=== PATIENT | female | born 1985 ===

== ENCOUNTER → 2022-07-03 13:42 | Outpatient (ROUT) | payer OTHER, SELFPAY ==
[2022-07-03 16:49] LABS: COVID-19 CEPHEID PCR (VTM/NP) Negative (Negative)
== END ==
PROVIDERS: Visit Provider Otolaryngology
DX: Z20.822 Contact with and (suspected) exposure to COVID-19 (principal); J98.8 Other specified respiratory disorders; J35.1 Hypertrophy of tonsils; J03.91 Acute recurrent tonsillitis, unspecified; J34.2 Deviated nasal septum
CPT/HCPCS: U0003; U0005

== ENCOUNTER 2022-07-05 09:57 | Day surgery (SDC) | payer OTHER, SELFPAY ==
[2022-07-02 14:35] VITALS: BMI 47.5
[2022-07-05] VITALS (9 sets, daily range): BP systolic 118–140; BP diastolic 69–80; PULSE 64–84; RESP 16–24; TEMP 36.4–36.7; O2SAT 95–98; BMI 47.5
[2022-07-05 10:43] LABS: COVID19 -Nasal RAPID Negative (Negative)
--- NOTE | 2022-07-05 11:02 | PM.PREOP ---
Pre-operative Note Interval Note History & Physical reviewed/Exam performed by Physician: Yes Changes to H&P: No
--- NOTE | 2022-07-05 11:02 | PM.HP.1 ---
History of Present Illness History of Present Illness Date Patient Seen: 07/05/22 Time Patient Seen: 11:02 Chief complaint: SDC Narrative: 36-year-old female last seen in clinic 03/20/2022 for the diagnoses of upper airway obstruction, tonsillar hypertrophy, recurrent tonsillitis and septal deviation presents without new complaints. No recent cough, cold, or fever. Wishes to proceed with tonsillectomy and possible adenoidectomy as outpatient. Occasional possible witnessed apneas but not consistent. Patient History Medical History Airway obstruction Enlarged tonsils Headache Nasal septal deviation Tonsillitis Surgical History History of Family & Social History Social History: household members spouse,children Tobacco & Substance use: Smoking Status Never smoker alcohol intake former Substance Use Type does not use Meds Home Medications and Allergies Home Medications Medication Instructions Recorded Confirmed Type No Known Home Medications 07/02/22 07/02/22 History Allergies Allergy/AdvReac Type Severity Reaction Status Date / Time No Known Drug Allergies Allergy Verified 07/05/22 10:22 Review of Systems Review of Systems Narrative: Negative except as listed in HPI Exam Vital Signs (past 8 hours): - 07/05/22 10:23 Temperature 98.0 F Pulse Rate 69 Respiratory Rate 16 Blood Pressure 129/78 Pulse Oximetry 98 Oxygen Delivery Method Room Air Oxygen Delivery Method Room Air Narrative Exam Narrative: Well-developed overweight female in no acute distress. Heart regular rate and rhythm without murmur, lungs clear to auscultation bilaterally Objective Labs Labs: Laboratory Results - last 24 hr 07/05/22 10:18 SARS-CoV-2 (PCR) Negative Assessment & Plan Assessment & Plan narrative: Assessment: Upper airway obstruction secondary to tonsillar hypertrophy, recurrent tonsillitis Plan: Following discussion of the material risks benefits complications and alternatives, she elected to proceed with tonsillectomy and possible adenoidectomy as outpatient Time Spent With Patient Critical Care time: I spent a total of [] minutes of critical care time on this patient's care today; this time is exclusive of procedural time.
--- NOTE | 2022-07-05 11:04 | PM.OP.1 ---
Operative Date/Time/Diagnoses Date of procedure: 07/05/22 Time of procedure: 12:53 Pre-op diagnosis: Upper airway obstruction secondary to tonsillar hypertrophy, recurrent tonsillitis Post-op diagnosis: same (with mild adenoid hypertrophy) Procedure & Clinicians Procedure: Tonsillectomy and adenoidectomy Same procedure as scheduled: Yes Indications: 36-year-old female with above diagnoses incompletely managed with medical therapy presents for the above procedure. Following discussion of the material risks benefits complications and alternatives, she elected to proceed. Surgeon: Adelso Cavazos Click Yes if Unassisted: Yes Anesthesia Type: General and Local Operative Notes Findings: 3 to 4+ tonsils, 1-2+ adenoids, intact palate, single uvula, small oral cavity with relative macroglossia, difficult exposure Estimated Blood Loss (mL): 10 Procedure in detail: Following identification and confirmation of consent the patient was brought to the operating room suite and placed in the supine position. General endotracheal anesthesia was administered. A head wrap, shoulder roll, and mouth gag were placed and a red rubber catheter was inserted through the nostril and out the mouth to retract the soft palate. Suction electrocautery on a setting of 40 was used to ablate the adenoids, without injury to the eustachian tube orifices or choanae. Due to difficult exposure, the gag was placed to allow visualization of 1 tonsil at a time for dissection. The left tonsil was retracted medially and suction electrocautery on a setting of 30 was used to dissect the tonsil in a subcapsular plane. Hemostasis with additional suction electrocautery was obtained. This process was repeated on the right side with identical findings. The tonsillar fossa were superficially infiltrated bilaterally with a 1 1 mixture of 1% lidocaine and 0.5% Marcaine 1 to [id number] epinephrine. Mouth gag and rubber catheter were removed and the patient was extubated in the operating room and taken to the recovery room in stable condition without known complication. Complications: none Post-operative Condition: stable Disposition: same day surgery Plan for aftercare: Push fluids, alternate Tylenol and Advil every 3 hours for baseline pain control, oxycodone for breakthrough pain. Soft diet 2 full weeks, no heavy lifting or straining 2 weeks.
[2022-07-05] MEDS: LACTATED RINGERS 1,000 ML 84 ML IV (11:12)
--- NOTE | 2022-07-05 12:27 | SUR.OPER ---
Supine on padded OR bed, head on pillow, arms secured on padded arm boards at <90 degrees abduction, legs uncrossed, safety belt at thigh, tape over blanket over lower legs.
[2022-07-05] MEDS: LIDOCAINE 1% (PF) 5 ML INJ (12:30)
[2022-07-05] MEDS: BUPIVACAINE 0.5% W/ EPI (PF) 30 ML VIAL INJ (12:31)
[2022-07-05] MEDS: BENZOCAINE/MENTHOL 1 LOZ PKT 1 EACH PO (13:23)
[2022-07-05] MEDS: OXYCODONE IR 5 MG TABLET PO (13:23)
--- NOTE | 2022-07-05 13:48 | SUR.PHASEII ---
Call light within reach. Juice provided, patient swallowing without difficulty.
== END 2022-07-05 14:33 | disposition home or self-care (01) ==
PROVIDERS: Referring Provider Otolaryngology; Visit Provider Otolaryngology
PROC: (CPT 42821; principal; 2022-07-05 11:45)
DX: J03.90 Acute tonsillitis, unspecified (principal); J35.2 Hypertrophy of adenoids; Z20.822 Contact with and (suspected) exposure to COVID-19
CPT/HCPCS: 42821; 81025; 87635; C9803; J0330; J1100; J2250; J2405; J2704; J3010

== ENCOUNTER → 2022-09-20 12:59 | Outpatient (CLI) | payer OTHER, SELFPAY ==
[2022-09-20 20:14] LABS: Urine Chlamydia NOT DETECTED; Urine N gonorrhoeae NOT DETECTED
== END ==
PROVIDERS: Visit Provider Obstetrics & Gynecology
DX: Z34.81 Encounter for supervision of other normal pregnancy, first trimester (principal); Z11.3 Encounter for screening for infections with a predominantly sexual mode of transmission; Z3A.13 13 weeks gestation of pregnancy
CPT/HCPCS: 87491; 87591

== ENCOUNTER → 2022-09-20 13:18 | Outpatient (CLI) | payer OTHER, SELFPAY ==
[2022-09-20 14:11] LABS: Appearance Urine UA SL CLOUDY; Bilirubin Urine UA NEGATIVE (NEGATIVE); Color Urine UA YELLOW; Glucose Urine UA NEGATIVE (Negative); Ketones Urine UA TRACE (NEGATIVE); Leukocyte Esterase Urine UA TRACE (NEGATIVE); Nitrite Urine UA NEGATIVE (Negative); Occult Blood Urine UA TRACE-LYSED (Negative); Protein Urine UA NEGATIVE (Negative); Urobilinogen Urine UA 0.2 E.U./dL (0.2)
[2022-09-20 14:25] LABS: Amorphous Sediment Urine 1+; Bacteria Urine Many (>30); RBC Urine 1-5/HPF (0-5/HPF); Renal Epithelial Cells Urine 1-5/HPF (0-1/HPF); Squamous Epithelial Cell Urine 10-30 /HPF (0-5/HPF); WBC Urine 5-10/HPF (0-5/HPF)
[2022-09-20 14:40] LABS: Add Manual Diff / Slide Review NO; Basophils Absolute Auto 0 /uL (0-100); Basophils Percent Auto 0.1 % (0-2); Eosinophils Absolute Auto 100 /uL (0-450); Eosinophils Percent Auto 1.2 % (2-4); Hematocrit 33.1 % (36-46); Hemoglobin 11.4 g/dL (12.0-16.0); Lymphocytes Absolute Auto 2000 /uL (1100-4500); Lymphocytes Percent Auto 18.2 % (25-40); Mean Corpuscular HGB Conc 34.4 % (30-36); Mean Corpuscular Hemoglobin 27.1 PG (26-34); Mean Corpuscular Volume 78.8 fL (80-100); Monocytes Absolute Auto 400 /uL (0-900); Monocytes Percent Auto 3.4 % (3-14); Neutrophils Absolute Auto 8300 /uL (1500-7000); Neutrophils Percent Auto 77.1 % (50-75); Platelet Count 309 X10^3/uL (150-400); Red Cell Distribution Width 14.3 % (11.6-14.8); White Blood Cell Count 10.8 X10^3/uL (4.5-11.0)
[2022-09-20 17:27] LABS: HIV 1 & 2 Ab/Ag 4th Gen Combo NEGATIVE (NEGATIVE); Hep C Virus Ab w/Reflex Quant NEGATIVE s/c (NEGATIVE); Hepatitis B Surface Antigen NEGATIVE s/c (NEGATIVE); Rubella Antibody IgG 27.6 IU/mL (>15)
[2022-09-21 07:03] LABS: RPR Screen Non Reactive (Non Reactive)
[2022-09-21 07:08] LABS: Varicella IgG Antibody <135 index (Immune >165)
== END ==
PROVIDERS: Referring Provider Obstetrics & Gynecology; Visit Provider Obstetrics & Gynecology
DX: O09.521 Supervision of elderly multigravida, first trimester (principal); Z11.3 Encounter for screening for infections with a predominantly sexual mode of transmission; Z3A.13 13 weeks gestation of pregnancy
CPT/HCPCS: 36415; 80055; 81003; 81015; 86787; 86803; 86850; 86900; 86901; 87086; 87389; 87491; 87591

== ENCOUNTER → 2022-10-12 15:48 | Outpatient (CLI) | payer OTHER, SELFPAY ==
[2022-10-16 15:07] LABS: AFP Value 23.6 ng/mL (.); Insulin Dep Diabetes No (.); OSBR Risk 1IN 10000 (.); Results Report (.); Test Results *Screen Negative* (.)
== END ==
PROVIDERS: Referring Provider Obstetrics & Gynecology; Visit Provider Obstetrics & Gynecology
DX: Z34.82 Encounter for supervision of other normal pregnancy, second trimester (principal); Z3A.17 17 weeks gestation of pregnancy
CPT/HCPCS: 36415; 82105

== ENCOUNTER 2022-10-13 12:22 | Emergency (ER) | payer OTHER, SELFPAY ==
[2022-10-13 12:35] VITALS: BP 110/56; PULSE 78; RESP 18; TEMP 36.6; O2SAT 98; BMI 43.4
--- NOTE | 2022-10-13 12:51 | ED.FALL ---
HPI - Fall <Selin Roy PA-C - Last Filed: 10/13/22 15:51> General Chief Complaint: Fall Stated Complaint: 17 weeks fell in shower hips/tailbone olga Time Seen by Provider: 10/13/22 12:51 Source: patient Mode of arrival: Ambulatory History of Present Illness HPI Narrative: 36-year-old female with a history of 17 weeks , obesity presents with concern for pain and discomfort after falling in the shower this morning. Patient states that she had a mechanical fall and her left foot slipped forward out from under her she realized she was going down and put her right foot out behind her and did kind of a splits she ended up with her buttocks and hips hitting the back wall of the shower as she slid down. She did not hit her head or neck and did not lose consciousness. She states she ended up in an odd position and feels that she over stretch things in her hips and upper thighs and has discomfort in her low back. She thinks that it could be bruising as it feels ?tender?. She is not having any vaginal bleeding or abdominal pain since the event. She denies any other complaints or concerns including numbness or tingling saddle paresthesias, difficulty walking, weakness or any other symptoms. Related Data Home Medications Medication Instructions Recorded Confirmed prenat.vits,sarita,[id number] 1 tab PO DAILY 08/28/22 10/12/22 Allergies Allergy/AdvReac Type Severity Reaction Status Date / Time No Known Drug Allergies Allergy Verified 10/12/22 15:13 Review of Systems <Selin Roy PA-C - Last Filed: 10/13/22 15:51> Review of Systems Narrative: Unremarkable except as noted in the HPI Patient History <Selin Roy PA-C - Last Filed: 10/13/22 15:51> Medical History Airway obstruction Enlarged tonsils Headache Nasal septal deviation depression Tonsillitis Surgical History History of History of tonsillectomy Social History marital status: household members: spouse, family (sister) and children lives independently: Yes caregiver/support person: Yes housing: condominium ([facility]) pets and animals: No education level: college (some college) occupational status: employed current occupational exposures/hazards: No special zechariah needs: No travel history: recent (domestic only) seatbelt use: always helmet use: Yes water heater temp set < 120 deg: Yes working smoke detector in home: Yes fire extinguisher in home: No (encouraged to purchase one) carbon monox detector in home: Yes firearms in home: No do you feel safe at home: Yes Smoking Status: Former smoker Tobacco: How many years used: 11 second hand exposure: No alcohol intake: former (1-2/week when not ) substance use type: does not use during the past year weight has: decreased > 10 lbs (intentional) well-balanced diet: daily or most days daily servings fruits/ve-4 caffeine: Yes (aware of 200mg limit) Type(s) of exercise: none Smoking Status: Former smoker Substance Use Type: does not use Exam <Selin Roy PA-C - Last Filed: 10/13/22 15:51> Initial Vital Signs Initial Vital Signs: Vital Signs Temperature 97.9 F 10/13/22 12:35 Pulse Rate 78 10/13/22 12:35 Respiratory Rate 18 10/13/22 12:35 Blood Pressure 110/56 L 10/13/22 12:35 Pulse Oximetry 98 10/13/22 12:35 Oxygen Delivery Method 10/13/22 12:35 HENMT Head: normal to inspection Face and sinus: normal facial exam Eyes General: Yes appearance normal, both eyes and all related structures Pupils: PERRL Resp Effort & Inspection: normal respiratory effort Auscultation: clear to auscultation bilaterally GI Inspection: normal to inspection Palpation: soft and No tender Other: protruberant Back/Spine/Pelvis Cervical Spine: cervical ROM normal and No pain with cervical ROM Thoracic/Lumbar Spine: thoracic and lumbar spine normal to inspection, thoraco-lumbar ROM normal, straight leg raise negative bilaterally, paraspinal tenderness (bilat mild lumbar) and lumbar spinal tenderness (there is slight tenderness over L4 feels like a bruise) Skin General: no rashes or lesions noted Other: no bruising Extrem General: normal to inspection Right lower extremity: normal to inspection and full ROM Left lower extremity: normal to inspection and full ROM Other: Strength of lower extremities is 5/5 bilateral with flexion and extension at the hip and knee pain-free <Prema Gaxiola DO - Last Filed: 10/14/22 08:27> Initial Vital Signs Initial Vital Signs: Vital Signs Temperature 97.9 F 10/13/22 12:35 Pulse Rate 78 10/13/22 12:35 Respiratory Rate 18 10/13/22 12:35 Blood Pressure 110/56 L 10/13/22 12:35 Pulse Oximetry 98 10/13/22 12:35 Oxygen Delivery Method 10/13/22 12:35 Course <Selin Roy PA-C - Last Filed: 10/13/22 15:51> Reevaluation(s) Reevaluation #1: Discussed exam findings with the patient and the heart tones obtained that were at 150. Discussed that given her status at 17 weeks and the nature of her discomfort and the mechanism of her fall today do not feel that an x-ray is advisable due to potential radiation to her fetus. Patient was agreeable with this and we discussed the plan for supportive care including Tylenol, heat, gentle massage as tolerated and gentle stretching monitoring at home for new or worsening symptoms, a work note for Saturday and Saturday if she is not feeling better. Time: 01:35 Vital Signs Vital signs: Vital Signs - 8 hr 10/13/22 12:35 10/13/22 14:13 Temperature 97.9 F Pulse Rate 78 75 Respiratory Rate 18 16 Blood Pressure 110/56 L 115/65 Pulse Oximetry 98 98 Oxygen Delivery Method Room Air Room Air <Prema Gaxiola DO - Last Filed: 10/14/22 08:27> Vital Signs Vital signs: Vital Signs - 8 hr 10/13/22 12:35 10/13/22 14:13 Temperature 97.9 F Pulse Rate 78 75 Respiratory Rate 18 16 Blood Pressure 110/56 L 115/65 Pulse Oximetry 98 98 Oxygen Delivery Method Room Air Room Air MDM - Fall <Selin Roy PA-C - Last Filed: 10/13/22 15:51> Medical Records Medical records narrative: I was the attending provider for this patient and cared for her during her emergency department stay. I was overseen by Dr. Gaxiola and discussed this patient with her prior to discharge. Lab Data Labs: Urine Dip Bedside Urine Glucose Negative Bedside Urine Bilirubin - Negative Bedside Urine Ketone - Negative Urine Specific [place] 1.030 Bedside Urine Occult Blood - Negative Bedside Urine pH 6.0 Bedside Urine Protein - Negative Bedside Urine Urobilinogen - Negative Bedside Urine Nitrite - Negative Bedside Urine Leukocytes - Negative Esterase MDM Narrative Medical decision making narrative: Well-appearing 36-year-old female in no significant distress history of obesity with 17 weeks presents with concern for discomfort in her low back and hips after she fell from standing in the shower due to slipping. Exam today does not show any deficit in strength, mobility she also has no numbness or tingling abdominal pain vaginal bleeding or concerning symptoms that would suggest need for ultrasound imaging or x-ray today. She does have a heart tone exam with a rate of 150 which is reassuring. Differential diagnosis includes mechanical fall, muscle strain, sprain, less likely disc compression. After shared decision-making discussion with the patient we agreed that preference to not pursue any imaging or x-ray today based on the mechanism and the fact that she has no concerning findings on her physical exam. She will monitor carefully at home for new symptoms including vaginal bleeding, abdominal pain that is new or different, numbness or tingling in lower extremity or groin weakness or worsening pain. She will be following up with her primary care and OB provider and we discussed possible referral for physical therapy or orthopedics if she feels she is not improving in 5-7 days. Providing a work note for the patient for Saturday and Saturday at her request as she is unsure she will be feeling better by then. She will use Tylenol, heat, gentle stretching and or massage as tolerated. Return precautions provided, follow-up plan discussed, all questions answered. <Prema Gaxiola, DO - Last Filed: 10/14/22 08:27> Lab Data Labs: Urine Dip Bedside Urine Glucose Negative Bedside Urine Bilirubin - Negative Bedside Urine Ketone - Negative Urine Specific [place] 1.030 Bedside Urine Occult Blood - Negative Bedside Urine pH 6.0 Bedside Urine Protein - Negative Bedside Urine Urobilinogen - Negative Bedside Urine Nitrite - Negative Bedside Urine Leukocytes - Negative Esterase Discharge Plan Departure Patient Disposition: Home Clinical Impression: Fall from standing, Muscle strain Activity Restrictions/Additional Instructions: Thank you for letting us be part of your care in the emergency department today. Thankfully your had a reassuring exam and heart tones. As we discussed since you are and your exam does not suggest a significant underlying injury we elected not to do any imaging/x-rays today for further evaluation. I do feel it is most likely that your discomfort is related to strained muscles and some bruising due to your fall in the shower today. As we discussed if you do have worsening pain or symptoms despite taking it easy, trying Tylenol for pain, heat, ice, gentle stretching and or massage do not hesitate to be re-evaluated--I recommend following up with your primary care provider and OB provider and if you desire referral for physical therapy or orthopedics you can certainly discuss this with them. Additionally if in the next few days you have new numbness or tingling of her lower extremities or groin, leg weakness, difficulty walking, abdominal pain that is different or unusual for you in your , or vaginal bleeding do not hesitate to come to the emergency department for re-evaluation. Prescriptions: No Action prenat.vits,sarita,[id number] Tablet 1 tab PO DAILY Referrals: ProviderValerie [Primary Care Provider] - Stand Alone Forms: Patient Portal/API, Work Release Note <Prema Gaxiola DO - Last Filed: 10/14/22 08:27> Cosign ED Attending Donisature Attestation: I was immediately available in the department for consultation. Documentation has been reviewed.
[2022-10-13 14:13] VITALS: BP 115/65; PULSE 75; RESP 16; O2SAT 98
== END 2022-10-13 14:18 | disposition home or self-care (01) ==
PROVIDERS: Emergency Provider Student in an Organized Health Care Education/Training Program
DX: O26.893 Other specified pregnancy related conditions, third trimester (principal); T14.8XXA Other injury of unspecified body region, initial encounter; W18.2XXA Fall in (into) shower or empty bathtub, initial encounter; Z3A.17 17 weeks gestation of pregnancy
CPT/HCPCS: 81003; 99282; 99283

== ENCOUNTER → 2022-11-05 15:30 | Outpatient (CLI) | payer OTHER, SELFPAY ==
--- NOTE | 2022-11-05 15:32 | DI.US.S_ITS ---
PROCEDURE: US OB >= 14 WEEKS FETUS INDICATIONS: 20 Week Anatomy Scan OUTSIDE/PRIOR DATING DATA: Last menstrual period (LMP): 06/15/2022 LMP-based estimated date of delivery (KUNAL): 03/22/2023. First dating scan (date and location): 11/05/2022 Estimated date of delivery (KUNAL) from first dating scan: 03/21/2023. TECHNIQUE: Real-time scanning was performed of the fetus, with image documentation and biometric measurements. COMPARISON: None. FINDINGS: General: A single living intrauterine gestation is present. Presentation: Breech. Placenta: Placental position is posterior, without previa. Amniotic fluid index: 15.4 cm, normal range is 5-24 cm. Single deepest vertical pocket is 6.4 cm. heart rate: 143 beats per minute. Maternal cervical canal: 3.2 cm long. Normal lower limit is 2.5 cm. biometrics: Biparietal diameter: 20 weeks 4 days Head circumference: 20 weeks 4 days Abdominal circumference: 20 weeks 3 days Femur length: 20 weeks 4 days Clinically estimated gestational age: 20 weeks 3 days Composite gestational age from present scan: 20 weeks 4 days Estimated weight and percentile: 354 g; 48th percentile Anatomic survey: Neuro: Ventricles are non-dilated at less than 10 mm. Cisterna magna is normal at 3-11 mm. Cerebellum is normal in size and morphology. Nuchal skin fold: Normal at less than 6 mm between 14-21 weeks gestational age. Face: Suboptimally visualized. Spine: No evidence for spina bifida. Heart: 4-chambered heart is present, with suboptimal visualization of the cardiac outflow tracts.. Diaphragm: Diaphragm is intact. Stomach: Left-sided stomach is present. Kidneys: No hydronephrosis. Normal is less than 5 mm in 2nd trimester, less than 7 mm in 3rd trimester. Cord: Suboptimally visualized. Bladder: Normal in size. Extremities: All 4 extremities identified. IMPRESSION: 1. Single living IUP with composite gestational age of 20 weeks 4 days corresponding to ultrasound KUNAL of 03/21/2023. 2. Limited anatomic survey and short-term follow-up ultrasound recommended. We strive to produce accurate, complete, and clear reports of imaging services. To assist us in improving patient care, this report was composed using standard report templates and voice recognition software. Therefore, it may contain abnormal punctuation, insertions and/or omissions. Occasional wrong-word or sound-alike substitutions may occur. Though we review the report and make efforts to correct it, we do recommend that the report be read carefully in proper context to recognize any text inaccuracies. Dictated by: Stefano AGARWAL Interpreted: Danny Clarke MD on 11/05/2022 at 16:41 Transcribed by: MASOOD on 11/05/2022 at 16:44 Approved by: Danny Clarke M.D. on 11/05/2022 at 21:17
== END ==
PROVIDERS: Referring Provider Obstetrics & Gynecology; Visit Provider Obstetrics & Gynecology
DX: Z34.82 Encounter for supervision of other normal pregnancy, second trimester (principal); Z3A.20 20 weeks gestation of pregnancy
CPT/HCPCS: 76811

== ENCOUNTER → 2022-11-23 16:01 | Outpatient (CLI) | payer OTHER, SELFPAY ==
--- NOTE | 2022-11-23 16:03 | DI.US.S_ITS ---
PROCEDURE: US OB FOLLOW UP INDICATIONS: INCOMPLETE ANATOMY SCAN 11/05/2022 OUTSIDE/PRIOR DATING DATA: Last menstrual period (LMP): June 15, 2022. LMP-based estimated date of delivery (KUNAL): March 22, 2023. The calculations are made using the clinical KUNAL of March 22, 2023. TECHNIQUE: Real-time scanning was performed of the fetus, with image documentation. Endovaginal scanning: Not performed COMPARISON: None. FINDINGS: A single living intrauterine gestation is present. Presentation: Vertex. Placenta: Placental position is posterior, without previa. Amniotic fluid index: 13.2 cm, normal range is 5-24 cm. Single deepest vertical pocket is 4.4 cm. heart rate: 145 beats per minute. Maternal cervical canal: 4.8 cm long. Normal lower limit is 2.5 cm. Clinically estimated gestational age: 23 weeks and 0 days Other: Visualized portions of the face, facial profile, four-chamber heart, ventricular outflow tracts and cord insertion appear unremarkable. IMPRESSION: Single living intrauterine gestation with estimated gestational age of approximately 23 weeks and 0 days. Follow-up evaluation of the face, facial profile, ventricular outflow tracts, four-chamber heart, and cord insertion appear unremarkable. Dictated by: Shashi Amezquita M.D. on 11/23/2022 at 20:29 Approved by: Shashi Amezquita M.D. on 11/23/2022 at 20:59
== END ==
PROVIDERS: Referring Provider Obstetrics & Gynecology; Visit Provider Obstetrics & Gynecology
DX: Z36.2 Encounter for other antenatal screening follow-up (principal); Z3A.23 23 weeks gestation of pregnancy
CPT/HCPCS: 76816

== ENCOUNTER → 2022-12-12 14:17 | Outpatient (CLI) | payer OTHER, SELFPAY ==
[2022-12-12 15:30] LABS: Hematocrit 28.7 % (36-46); Hemoglobin 9.5 g/dL (12.0-16.0)
[2022-12-12 15:59] LABS: GTT (PREG) 1 Hour PP 50gm Dose 114 mg/dL (76-139)
== END ==
PROVIDERS: Referring Provider Obstetrics & Gynecology; Visit Provider Obstetrics & Gynecology
DX: Z34.83 Encounter for supervision of other normal pregnancy, third trimester (principal); Z3A.26 26 weeks gestation of pregnancy
CPT/HCPCS: 36415; 82950; 85014; 85018

== ENCOUNTER → 2023-03-04 14:18 | Outpatient (CLI) | payer OTHER, SELFPAY ==
[2023-03-05 11:19] LABS: Strep Grp B PCR NEG for Grp B Strep
== END ==
PROVIDERS: Visit Provider Physician Assistant Medical
DX: Z34.83 Encounter for supervision of other normal pregnancy, third trimester (principal); Z3A.37 37 weeks gestation of pregnancy
CPT/HCPCS: 87653

== ENCOUNTER 2023-03-14 05:52 | Inpatient (IN) | payer OTHER, SELFPAY ==
--- NOTE | 2023-03-13 16:14 | PM.OBHP.1 ---
OB HPI Date/Time Date of admission: 03/13/23 Date Patient Seen: 03/13/23 Time Patient Seen: 07:15 History of Present Condition Chief complaint: INPT C SECTION : 2 Para: 1 Estimated Date of Delivery: 03/21/23 Estimated Gestational Age (weeks): 39+0 Narrative: Shaye Moncada is a 37 year old status post previous primary section who was admitted at this time at 39 weeks gestational age for repeat section. Her course is largely been uneventful with solid dating and appropriate milestones throughout. GBS is negative. Indications Operative indications ( section): previous uterine surgery History of Present care: good care Dating criteria: LMP confirmed by 1st trimester US Ultrasounds: normal 1st trimester US and normal mid trimester US Obstetrical complications: none Medical complications: none Preadmission Labs Blood type: A (+) positive -: Antibody screen: negative, GBS status: negative, HBsAG: negative, HIV: negative and RPR/VDLR: negative -: Chlamydia screen: not detected and Gonorrhea screen: not detected -: Rubella: immune and Varicella: not immune HCT: 28.7 HCAB: negative PAP: Normal Quad screen: Normal (AFP testing negative) Cell-free DNA: Low risk female 1 hr GTT: 114 Prior (ies) History: CS x1 Evaluation Evaluation Baseline heart rate: 140 Variability: Moderate (11-25) monitor accelerations: Present Monitor Decelerations: Absent Status: Category l [facility] Medical History Airway obstruction Enlarged tonsils Headache Nasal septal deviation depression Tonsillitis Surgical History History of History of tonsillectomy Social History marital status: household members: spouse, family (sister) and children lives independently: Yes caregiver/support person: Yes [facility] pets and animals: No education level: college (some college) occupational status: employed current occupational exposures/hazards: No special zechariah needs: No travel history: recent (domestic only) seatbelt use: always helmet use: Yes water heater temp set < 120 deg: Yes working smoke detector in home: Yes fire extinguisher in home: No (encouraged to purchase one) carbon monox detector in home: Yes firearms in home: No do you feel safe at home: Yes Smoking Status: Former smoker Tobacco: How many years used: 11 second hand exposure: No alcohol intake: former (1-2/week when not ) substance use type: does not use during the past year weight has: decreased > 10 lbs (intentional) well-balanced diet: daily or most days daily servings fruits/ve-4 caffeine: Yes (aware of 200mg limit) Type(s) of exercise: none Meds Home Medications and Allergies Home Medications Medication Instructions Recorded Confirmed Type prenat.vits,sarita,[id number] 1 tab PO DAILY 08/28/22 03/14/23 History Allergies Allergy/AdvReac Type Severity Reaction Status Date / Time No Known Drug Allergies Allergy Verified 03/14/23 06:47 Review of Systems Review of Systems Narrative: Problem-specific ROS positives included in HPI OB Exam HENDE Head: normal to inspection, normocephalic and atraumatic Eyes General: appearance normal, both eyes and all related structures Resp Effort & Inspection: normal respiratory effort and able to speak in complete sentences Auscultation: clear to auscultation bilaterally Cardio Rate: regular rate Rhythm: regular rhythm Heart Sounds: S1 normal, S2 normal and no murmurs Extremities Lower extremity: Yes normal to inspection GI Inspection: normal to inspection Palpation: Yes soft and Yes no hepatosplenomegaly Uterus Location (Fundal Height): 40 Presentation: vertex Estimated Weight (lbs): 8 Objective Labs 03/13/23 07:00 Assessment and Plan Assessment and Plan Assessment and Plan narrative: ASSESSMENT 1. Intrauterine , 39+ 0 weeks gestational age 2. Prior section 3. Chronic anemia PLAN 1. Admit for repeat section 2. See admission orders
--- NOTE | 2023-03-14 07:16 | SUR.OPER ---
Supine on Padded OR bed, head on pillow, safety belt at thigh, arms secured on padded arm boards at <90 degrees abduction. Bump under right buttock. Legs uncrossed with pillow under knees, gel pad to heels, tape over blanket to lower legs.
[2023-03-14] MEDS: CITRIC ACID/SODIUM CITRATE 15 ML SOLUTION 30 ML PO (07:35)
[2023-03-14 07:38] LABS: Add Manual Diff / Slide Review NO; Basophils Absolute Auto 0 /uL (0-100); Basophils Percent Auto 0.2 % (0-2); Eosinophils Absolute Auto 100 /uL (0-450); Eosinophils Percent Auto 1.2 % (2-4); Hematocrit 29.7 % (36-46); Lymphocytes Absolute Auto 1800 /uL (1100-4500); Lymphocytes Percent Auto 18.4 % (25-40); Mean Corpuscular HGB Conc 33.7 % (30-36); Mean Corpuscular Hemoglobin 26.6 PG (26-34); Monocytes Absolute Auto 500 /uL (0-900); Neutrophils Absolute Auto 7500 /uL (1500-7000); Neutrophils Percent Auto 75.2 % (50-75); Platelet Count 268 X10^3/uL (150-400); Red Blood Cell Count 3.77 X10^6/uL (4.0-5.2); Red Cell Distribution Width 14.9 % (11.6-14.8)
[2023-03-14] MEDS: LACTATED RINGERS 1,000 ML 999 ML IV ×2 (07:44→09:12)
--- NOTE | 2023-03-14 07:48 | PM.PREOP ---
Pre-operative Note COVID-19 COVID-19 status: Not tested Criteria for continued procedure: Non-surgical alternatives not available or appropriate per current SOC Interval Note History & Physical reviewed/Exam performed by Physician: Yes Changes to H&P: No
[2023-03-14] MEDS: CEFAZOLIN 2 GM/100 ML PREMIX 100 ML IV (08:00)
--- NOTE | 2023-03-14 09:10 | SUR.OPER ---
LIVE BABY GIRL TOB [id number]. LEFT OR WITH OB RN.
[2023-03-14] MEDS: ACETAMINOPHEN IV 1,000 MG/100 ML VIAL 400 MG IV (09:13)
--- NOTE | 2023-03-14 09:57 | P.OP_ITS ---
Operative Date/Time/Diagnoses Date of procedure: 03/14/23 Time of procedure: 08:30 Pre-op diagnosis: Intrauterine gestation, jimenes, 39+0 weeks EGA Previous section x 1 Post-op diagnosis: same Procedure & Clinicians Procedure: Repeat section, low transverse cervical Same procedure as scheduled: Yes Indications: Shaye Moncada is a 37 year old status post previous primary section who was admitted at this time at 39 weeks gestational age for repeat section.? Her course is largely been uneventful with solid dating and appropriate milestones throughout.? GBS is negative. Surgeon: Alfred Hodge Associate Professor Of Literature: Tia Chase Reason for Associate Professor Of Literature: Associate Professor Of Literature required for the safe, effective, and timely completion of this surgery. Anesthesia Type: Spinal Operative Notes Findings: Viable female BW 3720 g (8 lb 3.2 oz), Apgars 6/7, delivered from the vertex presentation. Extensive adhesions involving the bladder dome and lower uterine segment extending over into the left parametria. The adhesions provided limited access to the lower uterine segment and complicated delivery of the following hysterotomy. Closure Type: primary Specimen(s): cord blood Intraoperative meds administered: Acetaminophen, Ketorolac, Methergine and Pitocin Applied: Catheter Estimated Blood Loss (mL): 800 Blood products transfused: none Procedure in detail: With her informed written consent, the patient was taken to the operating room and placed in the supine position for a repeat section procedure, for the indication(s) above. The abdomen was prepped and draped in the usual manner for section and a pre-surgical timeout was taken per [facility] OR protocol. The spinal block anesthetic performed was inadequate to provide sufficient anesthesia and therefore the patient underwent rapid sequence induction of general anesthesia. Once effective anesthesia was confirmed, a 15 cm transverse Pfannenstiel incision was made in the skin and taken down through the subcutaneous tissues to the deep fascia. The deep fascia was incised transversely, the rectus abdomini was bluntly and sharply, and the peritoneal cavity entered without difficulty. Sharp and blunt dissection was then necessary to dissect the bladder dome off the lower uterine segment so as to be able to expose a window for performance of the hysterotomy which was performed near the midline. Amniotomy revealed clear fluid. The incision was extended bilaterally with digital traction and the was delivered from the vertex presentation. The infant was vigorous and cord clamping delayed for 60 seconds. The placenta was delivered intact using gentle cord traction and fundal massage.The uterine cavity was then cleared of any clot/debris first with a sloppy wet lap tape followed by a dry lap tape. Ring forceps were then applied to the angles and the midline of the incised RICKY. A primary closure of the uterus was then accomplished with #1 CCGS in a running interlocking stitch followed by a 2nd layer of #1 CCGS in a running interlocking imbricating stitch. No additional sutures was/were required to achieve complete hemostasis of the hysterotomy. Once pelvic hemostasis was assured, anterior peritoneum were closed with a running 3-0 Vicryl suture and the fascia closed with #1 Vicryl in a running stitch initiated at both angles and tying separately near the midline. The subcutaneous tissues were reapproximated with 2-0 plain catgut suture using inverted interrupted stitches. The skin edges were then brought together with 4-0 Monocryl in a subcuticular closure and the incision was reinforced with 1 Steri-Strips. An appropriate compression dressing was applied and the patient transferred to PACU for recovery and subsequent transfer to the Center for recuperation. Complications: none Baby 1: Infant Gender: Female Presentation: vertex Position: Left Occiput Anterior Placental Delivery Description: Spontaneous and Expressed Cord Vessel Description: 3 Vessels score (1 min): 6 score (5 min): 7 weight: 8 lb 3.219 oz Post-operative Condition: stable Disposition: PACU Aftercare: routine postop
[2023-03-14 10:08] VITALS: BP 112/66; PULSE 72; RESP 22; TEMP 36.7; O2SAT 99
[2023-03-14] MEDS: KETOROLAC 30 MG/ML VIAL IV ×3 (11:16→23:32)
[2023-03-14] MEDS: ACETAMINOPHEN 325 MG TABLET 650 MG PO ×2 (14:35→22:24)
[2023-03-14] MEDS: OXYCODONE IR 10 MG TABLET PO (15:56)
[2023-03-14] MEDS: DOCUSATE 100 MG CAPSULE PO (22:04)
[2023-03-15] MEDS: KETOROLAC 30 MG/ML VIAL IV (04:30)
[2023-03-15] MEDS: ACETAMINOPHEN 325 MG TABLET 650 MG PO ×3 (04:30→19:10)
[2023-03-15 06:58] LABS: Basophils Absolute Auto 0 /uL (0-100); Basophils Percent Auto 0.2 % (0-2); Eosinophils Absolute Auto 100 /uL (0-450)
[2023-03-15 07:01] LABS: Add Manual Diff / Slide Review NO; Eosinophils Percent Auto 0.7 % (2-4); Lymphocytes Absolute Auto 2400 /uL (1100-4500); Lymphocytes Percent Auto 18.1 % (25-40); Mean Corpuscular HGB Conc 33.3 % (30-36); Mean Corpuscular Hemoglobin 26.3 PG (26-34); Mean Corpuscular Volume 79.2 fL (80-100); Monocytes Absolute Auto 800 /uL (0-900); Monocytes Percent Auto 5.6 % (3-14); Neutrophils Absolute Auto 10100 /uL (1500-7000); Neutrophils Percent Auto 75.4 % (50-75); Platelet Count 224 X10^3/uL (150-400); Red Blood Cell Count 2.52 X10^6/uL (4.0-5.2); White Blood Cell Count 13.3 X10^3/uL (4.5-11.0)
[2023-03-15 07:04] LABS: Hemoglobin 6.6 g/dL (12.0-16.0)
[2023-03-15] MEDS: IBUPROFEN 600 MG TABLET PO ×3 (10:38→23:04)
[2023-03-15] MEDS: OXYCODONE IR 10 MG TABLET PO ×3 (10:38→23:04)
[2023-03-15] MEDS: DOCUSATE 100 MG CAPSULE PO ×2 (10:39→23:05)
[2023-03-15] MEDS: LANOLIN OINT 7 GM 1 APPLIC TOP (10:39)
--- NOTE | 2023-03-15 10:58 | P.PNOB_ITS ---
Subjective - OB Subjective Patient comments: other (Headache) baby status: doing well [place] feeding status: exclusively breast feeding Narrative: Overnight patient has done well with her pain reasonably well controlled. She is experiencing a headache which does not appear to be postural in nature. She is having no significant nausea and vomiting. Lochia is light. Date Patient Seen: 03/15/23 Time Patient Seen: 09:59 Exam Vital Signs (past 8 hours): Oxygen Delivery Method Room Air Const General: cooperative and comfortable Nutritional Appearance: average body habitus Orientation: alert and oriented x3 HENMT Head: normal to inspection, atraumatic and abrasion Ears: hearing grossly normal bilaterally Face and sinus: face symmetric Eyes General: appearance normal, both eyes and all related structures Conjunctivae: conjunctivae normal Sclera: sclerae normal EOM: EOM intact bilaterally Neck Neck: normal visual inspection Resp Effort & Inspection: normal respiratory effort and able to speak in complete sentences Auscultation: clear to auscultation bilaterally Cardio Rate: regular rate Rhythm: regular rhythm Heart Sounds: S1 normal, S2 normal and no murmurs GI Inspection: normal to inspection and incision (Surgical dressing clean and dry) Palpation: soft, no hepatosplenomegaly and tender (Mild, diffuse postsurgical tenderness) External Female Exam: other (No significant bleeding noted) Extrem General: no calf tenderness Psych Appearance: grossly normal Mental Status: mental status grossly normal Speech and Movement: speech and movement normal Mood: congruent mood Affect: normal affect Attitude: cooperative Thought Process: normal Thought Content: normal Judgment: judgment good Objective Labs 03/15/23 06:30 Labs: Laboratory Results - last 24 hr 03/15/23 06:30 WBC 13.3 H RBC 2.52 L Hgb 6.6 L* Hct 20.0 L* MCV 79.2 L MCH 26.3 MCHC 33.3 RDW 15.0 H Plt Count 224 Neut % (Auto) 75.4 H Lymph % (Auto) 18.1 L [place] % (Auto) 5.6 Eos % (Auto) 0.7 L Baso % (Auto) 0.2 Neut # (Auto) 53473 H Lymph # (Auto) 2400 [place] # (Auto) 800 Eos # (Auto) 100 Baso # (Auto) 0 Assessment & Plan Assessment and Plan (1) Anemia affecting : Problem details: Patient is currently asymptomatic, without tachycardia or impaired ambulation but will initiate IV iron and recheck CBC in a.m.. Status: Acute (2) History of delivery affecting : Status: Acute Plan day: 1 plan OB: routine postop care Comments: Patient will receive IV iron today and tomorrow. Repeat CBC tomorrow. Time Spent With Patient Time: Total time spent is greater than 50% in coordination of care (as documented) at patient's floor/unit and/or counseling patient: Time with patient: 15-24 minutes
[2023-03-15] MEDS: IRON SUCROSE 200 MG in SODIUM CHLORIDE 0.9% 100 ML 220 MG IV (11:35)
[2023-03-15] MEDS: CYCLOBENZAPRINE 10 MG TABLET PO (19:10)
--- NOTE | 2023-03-15 20:13 | PC.NURSE ---
This RN delegated Iron infusion to Melinda HECK-Melinda fitzpatrick and gave IV Iron @ noonish
[2023-03-16] MEDS: ACETAMINOPHEN 325 MG TABLET 650 MG PO ×3 (01:30→15:29)
[2023-03-16] MEDS: OXYCODONE IR 10 MG TABLET PO ×3 (02:49→13:19)
[2023-03-16] MEDS: IBUPROFEN 600 MG TABLET PO ×2 (06:09→13:19)
[2023-03-16 07:59] LABS: Add Manual Diff / Slide Review NO; Basophils Absolute Auto 0 /uL (0-100); Basophils Percent Auto 0.3 % (0-2); Eosinophils Absolute Auto 300 /uL (0-450); Lymphocytes Absolute Auto 1700 /uL (1100-4500); Lymphocytes Percent Auto 13.7 % (25-40); Mean Corpuscular HGB Conc 33.4 % (30-36); Mean Corpuscular Hemoglobin 26.6 PG (26-34); Mean Corpuscular Volume 79.6 fL (80-100); Monocytes Absolute Auto 600 /uL (0-900); Neutrophils Absolute Auto 10000 /uL (1500-7000); Platelet Count 231 X10^3/uL (150-400); Red Blood Cell Count 2.39 X10^6/uL (4.0-5.2); Red Cell Distribution Width 15.1 % (11.6-14.8); White Blood Cell Count 12.7 X10^3/uL (4.5-11.0)
[2023-03-16 08:02] LABS: Hematocrit 19.1 % (36-46); Hemoglobin 6.4 g/dL (12.0-16.0)
[2023-03-16] MEDS: IRON SUCROSE 200 MG in SODIUM CHLORIDE 0.9% 100 ML 220 MG IV (09:03)
[2023-03-16] MEDS: DOCUSATE 100 MG CAPSULE PO (09:04)
--- NOTE | 2023-03-16 10:00 | P.EN_ITS ---
Event Note Date Patient Seen: 03/15/23 Time Patient Seen: 18:00 Event Note (Rapid Response, Code, or fall): I was called by OB to evaluate patient for a possible PDPH s/p spinal for c- section on 03/14/23. Upon evaluation, patient was sitting upright in recliner in no apparent distress and denied having a headache. She stated that she had a some neck tightness and discomfort that radiated to back of head earlier but had improved with medication. She stated the spinal she had received the day prior did not actually work, + darinel test and she ended up having a general anesthetic for her . On physical examination, she denied any tenderness along her spine, no bruising or trauma at attempted spinal injection site. Her posterior neck muscles appeared somewhat tight and were tender to palpation. In review of her lab results, her hct today revealed a hct of 20, and she had received an iron infusion earlier in the day. Her vitals signs on review were stable. We discussed at length the possibility of a PDPH vs other causes for a headache. While it may be possible that her headache is related to the attempted spinal, given the fact that she she felt better with medication, is neurologically intact, and is able to sit upright during our discussion we would do conservative management at this time. I suggested hydration, flexeril/heat pack for her neck tightness. Patient and spouse in agreement with the plan and follow-up this weekend with her headache. Dr. Helena ROMAN Anesthesiologist
--- NOTE | 2023-03-16 10:37 | P.PNOB_ITS ---
Subjective - OB Subjective Patient comments: pain well controlled, incisional pain, tolerating diet, flatus present and other (Continues to have intermittent semi postural headache) baby status: doing well feeding status: exclusively breast feeding Narrative: She continues to progress slowly but is ambulating independently and both bowel and bladder function are doing well. She denies any orthostatic symptoms. Date Patient Seen: 03/16/23 Time Patient Seen: 10:38 Exam Vital Signs (past 8 hours): Oxygen Delivery Method Room Air Const General: cooperative and comfortable Nutritional Appearance: average body habitus Orientation: alert and oriented x3 HENMT Head: normal to inspection, atraumatic and abrasion Ears: hearing grossly normal bilaterally Face and sinus: face symmetric Eyes General: appearance normal, both eyes and all related structures Conjunctivae: conjunctivae normal Sclera: sclerae normal EOM: EOM intact bilaterally Neck Neck: normal visual inspection Resp Effort & Inspection: normal respiratory effort and able to speak in complete sentences Auscultation: clear to auscultation bilaterally Cardio Rate: regular rate Rhythm: regular rhythm Heart Sounds: S1 normal, S2 normal and no murmurs GI Inspection: normal to inspection and incision (Surgical dressing clean and dry) Palpation: soft, no hepatosplenomegaly and tender (Mild, diffuse postsurgical tenderness) External Female Exam: other (No significant bleeding noted) Extrem General: no calf tenderness Psych Appearance: grossly normal Mental Status: mental status grossly normal Speech and Movement: speech and movement normal Mood: congruent mood Affect: normal affect Attitude: cooperative Thought Process: normal Thought Content: normal Judgment: judgment good Objective Labs 03/16/23 07:40 Labs: Laboratory Results - last 24 hr 03/16/23 07:40 WBC 12.7 H RBC 2.39 L Hgb 6.4 L* Hct 19.1 L* MCV 79.6 L MCH 26.6 MCHC 33.4 RDW 15.1 H Plt Count 231 Neut % (Auto) 79.0 H Lymph % (Auto) 13.7 L [place] % (Auto) 5.0 Eos % (Auto) 2.0 Baso % (Auto) 0.3 Neut # (Auto) 59871 H Lymph # (Auto) 1700 [place] # (Auto) 600 Eos # (Auto) 300 Baso # (Auto) 0 Assessment & Plan Assessment and Plan (1) Anemia affecting : Problem details: Patient remains asymptomatic, without tachycardia or impaired ambulation. Second dose of IV iron this AM well tolerated. Status: Acute Plan day: 2 plan OB: routine postop care Comments: Patient will remain under observation today and make a decision about whether she wants to go home later this afternoon. Time Spent With Patient Time: Total time spent is greater than 50% in coordination of care (as documented) at patient's floor/unit and/or counseling patient: Time with patient: 15-24 minutes
--- NOTE | 2023-03-18 10:31 | P.DS_ITS ---
History of Present Illness History of Present Illness Date Patient Seen: 03/16/23 Time Patient Seen: 10:00 Chief complaint: INPT C SECTION Narrative: Shaye Moncada is a 37 year old status post previous primary section who was admitted at this time at 39 weeks gestational age for repeat section.? Her course is largely been uneventful aside from chronic anemia, with solid dating and appropriate milestones throughout.? GBS is negative. Discharge Providers Provider Date of admission: 03/14/23 05:52 Discharge Date: 03/16/23 Primary care physician: Valerie BENAVIDES Provider Consults: 03/14/23 10:10 Consult to Dehydrator Operator Routine Comment: Discharge provider: Alfred Hodge MD Summary Hospital Course Discharge Diagnosis: Intrauterine gestation, C[place], 39+ 0 weeks gestation delivered by repeat section Advanced maternal age Prior section Chronic anemia, acute blood loss anemia Hospital Course: The patient was admitted on the morning of 03/14/2023 at which time she underwent an uneventful repeat section with an estimated blood loss between 800 cc and 1000 cc. Details of the procedure well summarized on my operative note of that date. Following delivery, patient and baby have both been doing well with the mother somewhat lethargic and easily fatigued but without orthostatic changes or tachycardia. Patient's hemoglobin and hematocrit nadired at 6.4 and 19.1 on the 2nd postoperative day but she remained essentially asymptomatic except her fatigue and declined transfusion. She will be discharged at this time to home in an afebrile normotensive condition, tolerating regular diet, ambulating independently, has experienced prompt return of bowel and bladder function, and her pain is well controlled with oral pain medications. She will be discharged at this time to home after counseling regarding precautionary symptoms, limitations activity, medications, and plans for follow-up which will be in 1 week for incision check. Medications at the time of discharge will include resumption of all pre delivery medications, oxycodone 10 mg p.o. q.6 hours as needed pain, dispense 20 with no refills, and ibuprofen 600 mg p.o. q.6 hours as needed pain. Status at Discharge Cognitive/behavioral status at discharge: oriented Functional status at discharge: independent ambulation Overall status at discharge: patient is progressing back to baseline Time Spent with Patient Time spent: Less than 30 minutes Exam Vital Signs (past 8 hours): Oxygen Delivery Method Room Air Const General: cooperative and comfortable Nutritional Appearance: average body habitus Orientation: alert and oriented x3 HENMT Head: normal to inspection, atraumatic and abrasion Ears: hearing grossly normal bilaterally Face and sinus: face symmetric Eyes General: appearance normal, both eyes and all related structures Conjunctivae: conjunctivae normal Sclera: sclerae normal EOM: EOM intact bilaterally Neck Neck: normal visual inspection Resp Effort & Inspection: normal respiratory effort and able to speak in complete sentences Auscultation: clear to auscultation bilaterally Cardio Rate: regular rate Rhythm: regular rhythm Heart Sounds: S1 normal, S2 normal and no murmurs GI Inspection: normal to inspection and incision (Incision clean/dry, pressure dressing removed, Aquacel applied) Palpation: soft, no hepatosplenomegaly and tender (Mild, diffuse postsurgical tenderness) External Female Exam: other (No significant bleeding noted) Extrem General: no calf tenderness Psych Appearance: grossly normal Mental Status: mental status grossly normal Speech and Movement: speech and movement normal Mood: congruent mood Affect: normal affect Attitude: cooperative Thought Process: normal Thought Content: normal Judgment: judgment good Objective Labs 03/16/23 07:40 [facility] Medical History Airway obstruction Enlarged tonsils Headache Nasal septal deviation depression Tonsillitis Surgical History History of History of tonsillectomy Social History marital status: household members: spouse, family (sister) and children lives independently: Yes caregiver/support person: Yes housing: [facility] ([facility]) pets and animals: No education level: college (some college) occupational status: employed current occupational exposures/hazards: No special zechariah needs: No travel history: recent (domestic only) seatbelt use: always helmet use: Yes water heater temp set < 120 deg: Yes working smoke detector in home: Yes fire extinguisher in home: No (encouraged to purchase one) carbon monox detector in home: Yes firearms in home: No do you feel safe at home: Yes Smoking Status: Former smoker Tobacco: How many years used: 11 second hand exposure: No alcohol intake: former (1-2/week when not ) substance use type: does not use during the past year weight has: decreased > 10 lbs (intentional) well-balanced diet: daily or most days daily servings fruits/ve-4 caffeine: Yes (aware of 200mg limit) Type(s) of exercise: none Discharge Plan Discharge Plan Patient Disposition: Home Provider Discharge Comment: Please review the written instructions you received when you were discharged from the hospital. You will need contact the office to schedule your follow-up appointment for 1 week after your surgery and I look forward to seeing you then. If however in the meanwhile you have any issues, concerns, or problems, please contact me either through the office phone at [phone], or via the patient portal. Discharge orders & Medications Prescriptions: New ibuprofen 600 mg Tablet 600 mg PO Q6H Qty: 30 2RF oxycodone 10 mg tablet 10 mg PO Q6H PRN (Reason: pain) Qty: 20 0RF Continued prenat.vits,sarita,[id number] Tablet 1 tab PO DAILY Follow up/Referrals: ProviderValerie [Primary Care Provider] - (call Dr. Florence office on saturday to make an appointment) Discharge Health Status Multidrug resistant organism: No MDRO Diet/Activity/Treatments Diet: Diet as Tolerated Activity: As tolerated Other treatments: You will need to take your iron supplement and vitamin C twice daily for at least the next 30 days. [id number] Tylenol may be used for additional pain relief. [id number] stool softeners and/or MiraLax may be used as needed for constipation. Skin/Wound/Dressing Care Report to your healthcare provider any signs of infection, such as:: chills, fever, increased pain, unusual drainage and unusual redness Dressing: Dressing will be removed at the time of your 1 week postop visit Visit Report/Discharge Packet Instructions: DI for , DI for and Nipple Soreness Stand Alone Forms: Discharge: Care Discharge Data Primary Care Provider: Valerie Campbell Discharges patient from system. Discharge Date/Time: 03/16/23 16:30
== END 2023-03-16 16:30 | disposition home or self-care (01) | DRG 787 ==
PROVIDERS: Admitting Provider Obstetrics & Gynecology; Referring Provider Obstetrics & Gynecology; Visit Provider Obstetrics & Gynecology
PROC: 10D00Z1 Extraction of Products of Conception, Low, Open Approach (ICD-10-PCS; CPT 59514; principal; 2023-03-14 07:45)
DX: O34.211 Maternal care for low transverse scar from previous cesarean delivery (principal); D62 Acute posthemorrhagic anemia; O99.02 Anemia complicating childbirth; O26.893 Other specified pregnancy related conditions, third trimester; R51.9 Headache, unspecified; Z3A.39 39 weeks gestation of pregnancy; Z67.10 Type A blood, Rh positive; Z37.0 Single live birth
CPT/HCPCS: 36415; 59050; 59510; 59514; 85025; 86850; 86900; 86901; J0131; J0690; J1756; J1885; J2274; J2405; J2590; J2704; J3010; J3490